=== PATIENT | female | born 2000 | race Two or more races ===

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

== ENCOUNTER 2018-02-14 08:00 | Outpatient (CLI) | payer SELFPAY | END 2018-02-14 23:59 | disposition home or self-care (01) | LOC: LAB.R 08:00 | PROVIDERS: ATTEND Nurse Practitioner Obstetrics & Gynecology | DX: Z11.3 Encounter for screening for infections with a predominantly sexual mode of transmission (principal) | CPT/HCPCS: 87491; 87591 ==

== ENCOUNTER 2018-02-16 09:55 | Outpatient (CLI) | payer SELFPAY ==
[2018-02-17 12:51] LABS: HEPATITIS C ANTIBODY NON-REACTIVE (NON-REACTIVE)
[2018-02-17 13:26] LABS: HIV AG/AB 4TH GEN NON-REACTIVE (NON-REACTIVE)
[2018-02-20 12:41] LABS: HSV 2 IGG TYPE SPECIFIC AB <0.90 index
== END 2018-02-16 23:59 | disposition home or self-care (01) ==
LOC: LAB.N 09:55
PROVIDERS: ATTEND Nurse Practitioner Obstetrics & Gynecology
DX: Z11.3 Encounter for screening for infections with a predominantly sexual mode of transmission (principal)
CPT/HCPCS: 36415; 81599; 86695; 86696; 86803; 87389

== ENCOUNTER 2018-07-25 12:27 | Emergency (ER) | payer SELFPAY ==
--- NOTE | 2018-07-25 12:36 | ED Physician Documentation ---
History of Present Illness - Stated complaint Stated Complaint: RT SIDE BACK PX - Chief complaint Chief Complaint: Abd Pain - History obtained from History obtained from: Patient - Additonal information Additional information: Patient is a previously healthy 17-year-old female presenting with about 2 weeks of right-sided thoracic discomfort that radiates towards her chest and is associated with pleuritic chest pain. Pain is worse with movement. Patient otherwise denies shortness of breath, productive cough, fever, abdominal pain, vomiting, urinary changes, stool changes, vaginal bleeding or pain. Patient denies any recent travel, strenuous exercise, heavy lifting, or known injury. Patient does take control pills. No other improving or worsening factors noted. Review of Systems Constitutional: denies: Fever Cardiac: reports: Chest pain / pressure Respiratory: denies: Dyspnea, Cough GI: denies: Abdominal Pain, Nausea, Vomiting : denies: Dysuria Musculoskeletal: reports: Back pain PD PAST MEDICAL HISTORY - Past Medical History Past Medical History: No - Past Surgical History Past Surgical History: No - Allergies Allergies/Adverse Reactions: Allergies Allergy/AdvReac Type Severity Reaction Status Date / Time No Known Drug Allergies Allergy Verified 10/05/17 21:31 - Social History Does the pt smoke?: No Smoking Status: Never smoker Does the pt drink ETOH?: No Does the pt have substance abuse?: Yes - Immunizations Immunizations are current?: Yes - POLST Patient has POLST: No PD ED PE NORMAL - Vitals Vital signs reviewed: Yes - General General: Alert and oriented X 3, No acute distress, Well developed/nourished - HEENT HEENT: Atraumatic, Moist mucous membranes - Neck Neck: No bony TTP - Cardiac Cardiac: RRR, No murmur - Respiratory Respiratory: No respiratory distress, Clear bilaterally - Abdomen Abdomen: Normal bowel sounds, Soft, Non tender, Non distended - Back Back: No spinal TTP, Other (No tenderness to right-sided cervical, thoracic, and lumbar paraspinal areas.) - Derm Derm: Normal color, Warm and dry, No rash - Extremities Extremities: No deformity, No tenderness to palpate, No edema, No calf tenderness / cord - Neuro Neuro: Alert and oriented X 3, No motor deficit, No sensory deficit - Psych Psych: Normal mood, Normal affect Results - Vitals Vitals: Vital Signs - 24 hr 07/25/18 12:30 Temperature 36.6 C Heart Rate 66 Respiratory 16 Rate Blood Pressure 130/71 O2 Saturation 100 Oxygen O2 Source Room air - Labs Labs: Laboratory Tests 07/25/18 07/25/18 07/25/18 12:45 12:54 12:55 WBC 6.8 RBC 4.72 Hgb 9.5 L Hct 33.7 L MCV 71.4 L MCH 20.1 L MCHC 28.2 L RDW 17.2 H Plt Count 364 MPV 9.8 Neut # (Auto) 4.0 Lymph # (Auto) 2.0 [place] # (Auto) 0.6 Eos # (Auto) 0.2 Baso # (Auto) 0.1 Absolute Nucleated RBC 0.00 Nucleated RBC % 0.0 Manual Slide Review Indicated D-Dimer Sodium Potassium Chloride Carbon Dioxide Anion Gap BUN Creatinine Estimated GFR (MDRD) Glucose Calcium Total Bilirubin AST ALT Alkaline Phosphatase Total Protein Albumin Globulin Albumin/Globulin Ratio Lipase Urine Color YELLOW Urine Clarity CLEAR Urine pH 7.0 Ur Specific [place] 1.015 1.015 Urine Protein NEGATIVE Urine Glucose (UA) NEGATIVE Urine Ketones NEGATIVE Urine Occult Blood NEGATIVE Urine Nitrite NEGATIVE Urine Bilirubin NEGATIVE Urine Urobilinogen 0.2 (NORMAL) Ur Leukocyte Esterase NEGATIVE Ur Microscopic Review NOT INDICATED Urine Culture Comments NOT INDICATED Urine HCG, Qual NEGATIVE 07/25/18 07/25/18 12:55 12:55 WBC RBC Hgb Hct MCV MCH MCHC RDW Plt Count MPV Neut # (Auto) Lymph # (Auto) [place] # (Auto) Eos # (Auto) Baso # (Auto) Absolute Nucleated RBC Nucleated RBC % Manual Slide Review D-Dimer < 200.0 L Sodium 140 Potassium 4.0 Chloride 105 Carbon Dioxide 25 Anion Gap 10.0 BUN 13 Creatinine 0.7 Estimated GFR (MDRD) 108 Glucose 88 Calcium 9.4 Total Bilirubin 0.6 AST 27 ALT 17 Alkaline Phosphatase 60 Total Protein 8.4 H Albumin 4.4 Globulin 4.0 Albumin/Globulin Ratio 1.1 Lipase 37 Urine Color Urine Clarity Urine pH Ur Specific [place] Urine Protein Urine Glucose (UA) Urine Ketones Urine Occult Blood Urine Nitrite Urine Bilirubin Urine Urobilinogen Ur Leukocyte Esterase Ur Microscopic Review Urine Culture Comments Urine HCG, Qual PD MEDICAL DECISION MAKING - ED course Complexity details: reviewed results, re-evaluated patient, considered differential, d/w patient ED course: Feel the patient is likely experiencing musculoskeletal injury or strain, but also consider PE, particularly given patient's description of pleuritic chest pain. Obtained d-dimer, which returned negative. Therefore, do not feel patient requires further evaluation for this issue. Also do not feel the patient is at high risk for pneumonia, ACS, myocardial infarction, unstable angina, aneurysm, dissection, but considered. Do not feel patient requires further work-up cardiac work-up at this time. Screening lab work and urinalysis did not reveal , infection, acute kidney injury, or other significant abnormalities except for slightly low H&H. Did discuss this result with patient and recommended starting iron and multivitamins, as well as repeat lab work and primary care follow-up. Also discussed other supportive cares for her likely musculoskeletal injury, strict return precautions, and again follow-up. Patient voiced understanding and is comfortable with discharge plan. Departure - Departure Disposition: 01 Home, Self Care Clinical Impression: Muscle strain Anemia Qualifiers: Anemia type: unspecified type Qualified Code(s): D64.9 - Anemia, unspecified Condition: Good Instructions: ED Sprain Thoracic Spine, ED Anemia Type Not Specified Follow-Up: Lizbeth Kennedy ARNP [Primary Care Provider] - Within 3 Days Comments: May use ibuprofen/Tylenol, heat, stretching, massage to address her likely muscle discomfort. Do believe this will go away with time. Avoid strenuous exercise, heavy lifting, or other activities that worsen your pain until it resolves. Please follow-up with primary care physician next 2 to 3 days.Also recommend starting iron supplement or multivitamin to address anemia.Also advise repeat lab work and follow-up with your primary care physician for this issue.Return to ED sooner if experience worsening symptoms or other concerns.
[2018-07-25 12:39] VITALS: BP 130/71
[2018-07-25 13:17] LABS: ALBUMIN 4.4 g/dL (3.2-5.5); ALBUMIN/GLOBULIN RATIO 1.1 (1.0-2.2); BILIRUBIN,TOTAL 0.6 mg/dL (0.2-1.0); CALCIUM 9.4 mg/dL (8.5-10.3); CREATININE 0.7 mg/dL (0.4-1.0); TOTAL PROTEIN 8.4 g/dL (6.7-8.2)
[2018-07-25 13:22] LABS: BASOPHILS # (AUTO) 0.1 10^3/uL (0.0-0.1); BASOPHILS % (AUTO) 0.7 %; EOSINOPHILS # (AUTO) 0.2 10^3/uL (0.0-0.7); EOSINOPHILS % (AUTO) 2.5 %; HGB - HEMOGLOBIN 9.5 g/dL (12.0-16.0); LYMPHOCYTES % (AUTO) 29.8 %; MEAN CORPUSCULAR HEMOGLOBIN 20.1 pg (27.0-31.0); MEAN CORPUSCULAR HGB CONC 28.2 g/dL (32.0-36.0); MEAN CORPUSCULAR VOLUME 71.4 fL (81.0-99.0); MEAN PLATELET VOLUME 9.8 fL (7.9-10.8); MONOCYTES # (AUTO) 0.6 10^3/uL (0.0-1.0); MONOCYTES % (AUTO) 8.2 %; NEUTROPHILS % (AUTO) 58.5 %; PLT - PLATELET COUNT 364 10^3/uL (130-450); RED BLOOD COUNT 4.72 10^6/uL (4.20-5.40); RED CELL DISTRIBUTION WIDTH 17.2 % (12.0-15.0); WHITE BLOOD COUNT 6.8 x10^3/uL (4.8-10.8)
[2018-07-25 13:27] LABS: BILIRUBIN,URINE NEGATIVE (NEGATIVE); GLUCOSE, URINE (UA) NEGATIVE (NEGATIVE); KETONES,URINE (UA) NEGATIVE (NEGATIVE); LEUKOCYTE ESTERASE, URINE NEGATIVE (NEGATIVE); NITRITE,URINE NEGATIVE (NEGATIVE); OCCULT BLOOD,URINE NEGATIVE (NEGATIVE); PROTEIN,URINE NEGATIVE (NEGATIVE); UROBILINOGEN,URINE 0.2 (NORMAL) E.U./dL (NORMAL)
[2018-07-25 13:30] LABS: CLARITY,URINE CLEAR (CLEAR)
[2018-07-25 13:31] LABS: HCG UR QUAL NEGATIVE
== END 2018-07-25 14:11 | disposition home or self-care (01) ==
LOC: ED 12:27
DX: S29.011A Strain of muscle and tendon of front wall of thorax, initial encounter (principal); X58.XXXA Exposure to other specified factors, initial encounter; D64.9 Anemia, unspecified
CPT/HCPCS: 36415; 80053; 81001; 81003; 81025; 83690; 85025; 85379; 87086; 99282; 99283

== ENCOUNTER 2018-11-05 08:00 | Outpatient (CLI) | payer SELFPAY ==
[2018-11-05 21:17] LABS: TRICHOMONAS VAGINALIS DNA NEGATIVE (NEGATIVE)
== END 2018-11-05 23:59 | disposition home or self-care (01) ==
LOC: LAB.R 08:00
PROVIDERS: ATTEND Physician Assistant Medical
DX: N93.9 Abnormal uterine and vaginal bleeding, unspecified (principal)
CPT/HCPCS: 87491; 87591; 87661

== ENCOUNTER 2018-11-05 21:48 | Outpatient (CLI) | payer SELFPAY ==
--- NOTE | 2018-11-05 23:59 | Ultrasound Report ---
Reason: VAGINAL BLEEDING Procedure Date: 11/05/2018 Accession Number: [id number] / [id number] Procedure: US - Pelvic w/Transvaginal CPT Code: FULL RESULT: EXAM: PELVIC ULTRASOUND EXAM DATE: 11/05/2018 11:09 PM. CLINICAL HISTORY: VAGINAL BLEEDING. COMPARISON: None. TECHNIQUE: Realtime transabdominal pelvic scan performed to identify the uterus and adnexa and as an overview of other pelvic structures, followed by transvaginal scan to provide greater detail of the uterus and adnexa, with static image documentation. FINDINGS: Uterus: 6.8 x 3.4 x 3 cm, volume 36.2 cc. Anteverted position. Normal overall size and echotexture. Masses: None. Endometrium: 3.2 mm. Endometrium appears normal on the grayscale ultrasound but demonstrates hypervascularity on the color Doppler images. Cervix: Unremarkable. Right Ovary: 2.8 x 3.6 x 1.8 cm, volume 9.4 cc. Normal echotexture and blood flow. Left Ovary: 3.6 x 2.7 x 2.5 cm, volume 12.7 cc. Normal echotexture and blood flow. Free Fluid: None. Other: None. IMPRESSION: 1. Normal appearance of the endometrium on the grayscale images with hypervascularity on the Doppler images. Endometritis is not excluded. 2. No other acute findings. Ovaries unremarkable. [facility] The call report notification system was initiated by Dr. Harshil Pham at 11:35 PM on 11/05/2018. The above call report findings were discussed with Dr. Juarez by Dr. Harshil Pham at 11:57 PM on 11/05/2018.
== END 2018-11-05 21:49 | disposition home or self-care (01) ==
LOC: DI 21:48
PROVIDERS: ATTEND Physician Assistant Medical
DX: N93.9 Abnormal uterine and vaginal bleeding, unspecified (principal)
CPT/HCPCS: 76830; 76856

== ENCOUNTER 2018-11-30 10:46 | Emergency (ER) | payer OTHER ==
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
[2018-11-30] MEDS ORDERED: SULFAMETH/TRIMETH DS 800/160 MG TABLET PO STA (11:58)
[2018-11-30] MEDS ORDERED: cephALEXin 250 MG CAPSULE PO STA (11:58)
[2018-11-30 12:05] VITALS: BP 127/87
== END 2018-11-30 12:19 | disposition home or self-care (01) ==
LOC: ED 10:46
DX: T24.212A Burn of second degree of left thigh, initial encounter (principal); T24.211A Burn of second degree of right thigh, initial encounter; T21.17XA Burn of first degree of female genital region, initial encounter; X10.0XXA Contact with hot drinks, initial encounter; Y92.511 Restaurant or cafe as the place of occurrence of the external cause
CPT/HCPCS: 99282; 99283

== ENCOUNTER 2019-03-19 09:38 | Outpatient (CLI) | payer MEDICAID, OTHER ==
[2019-03-19 21:58] LABS: TRICHOMONAS VAGINALIS DNA NEGATIVE (NEGATIVE)
[2019-03-20 11:33] LABS: HIV AG/AB 4TH GEN NON-REACTIVE (NON-REACTIVE)
== END 2019-03-19 23:59 | disposition home or self-care (01) ==
LOC: LAB.N 09:38
PROVIDERS: ATTEND Nurse Practitioner Gerontology
DX: Z11.3 Encounter for screening for infections with a predominantly sexual mode of transmission (principal)
CPT/HCPCS: 36415; 81599; 86592; 87389; 87491; 87591; 87661

== ENCOUNTER 2020-01-13 13:23 | Outpatient (CLI) | payer OTHER, MEDICAID ==
--- NOTE | 2020-01-13 15:05 | XRAY Report ---
PROCEDURE: Ankle 2 View LT INDICATIONS: L ANKLE PX TECHNIQUE: 2 views of the ankle were acquired. COMPARISON: None FINDINGS: Bones: No fractures or dislocations. Ankle mortise is normally aligned. No suspicious bony lesions . Soft tissues: Ankle edema is present. Achilles tendon appears normal. IMPRESSION: No visualized acute fracture or dislocation. However, occult injury cannot be excluded. Recommend short interval imaging follow-up in 7-10 days as clinically indicated for additional evalua tion. Reviewed by: Clarissa Kaur MD on 01/13/2020 3:04 PM PST Approved by: Clarissa Kaur MD on 01/13/2020 3:04 PM [facility] Station ID: [id number]
== END 2020-01-13 23:59 | disposition home or self-care (01) ==
LOC: DI.N 13:23
PROVIDERS: ATTEND Family Medicine
DX: M25.572 Pain in left ankle and joints of left foot (principal)

== ENCOUNTER 2021-06-05 10:58 | Emergency (ER) | payer MEDICAID ==
[2021-06-05 11:13] LABS: BILIRUBIN,URINE NEGATIVE (NEGATIVE); GLUCOSE, URINE (UA) NEGATIVE (NEGATIVE); KETONES,URINE (UA) NEGATIVE (NEGATIVE); LEUKOCYTE ESTERASE, URINE NEGATIVE (NEGATIVE); NITRITE,URINE NEGATIVE (NEGATIVE); OCCULT BLOOD,URINE NEGATIVE (NEGATIVE); PH,URINE 5.5 PH (5.0-7.5); PROTEIN,URINE NEGATIVE (NEGATIVE); UROBILINOGEN,URINE 0.2 (NORMAL) E.U./dL (NORMAL)
[2021-06-05 11:17] LABS: CLARITY,URINE CLEAR (CLEAR); HCG UR QUAL NEGATIVE
[2021-06-05 11:23] LABS: BASOPHILS # (AUTO) 0.1 10^3/uL (0.0-0.1); BASOPHILS % (AUTO) 1.1 %; EOSINOPHILS # (AUTO) 0.3 10^3/uL (0.0-0.7); EOSINOPHILS % (AUTO) 3.4 %; HCT - HEMATOCRIT 38.4 % (37.0-47.0); HGB - HEMOGLOBIN 12.3 g/dL (12.0-16.0); LYMPHOCYTES # (AUTO) 2.2 10^3/uL (1.5-3.5); LYMPHOCYTES % (AUTO) 28.9 %; MEAN CORPUSCULAR HEMOGLOBIN 26.8 pg (27.0-31.0); MEAN CORPUSCULAR VOLUME 83.7 fL (81.0-99.0); MONOCYTES % (AUTO) 12.8 %; NEUTROPHILS % (AUTO) 53.5 %; PLT - PLATELET COUNT 284 10^3/uL (130-450); RED BLOOD COUNT 4.59 10^6/uL (4.20-5.40); RED CELL DISTRIBUTION WIDTH 14.3 % (12.0-15.0); WHITE BLOOD COUNT 7.4 x10^3/uL (4.8-10.8)
--- OUTSIDE RECORDS SUMMARY | 2021-06-05 11:28 | EXTERNAL MEDICAL SUMMARY RPT | Continuity of Care Document ---
:2000 Author Organization [place] Address [address] [place] [address] Phone Care Team Providers Name Role Phone Crew, Lizbeth Lindquist Unavailable Unavailable Allergies No information. Encounters No information. Medications No information. Problems Procedures date description facility [id number] [facility] Results No information. Vital Signs date measurement value source 20210529 weight_standard 131 lb 20210529 weight_metric 59.42 kg 20210529 temperature_standard 97.7 F 20210529 temperature_metric 36.5 C 20210529 respiration_rate 19 /min 20210529 height_standard 62 in 20210529 height_metric 157.48 cm 20210529 heart_rate 78 /min 20210529 BP_systolic 130 mm[Hg] 20210529 BP_diastolic 63 mm[Hg] 20210529 BMI 23.9 kg/m2
[2021-06-05 11:40] LABS: ALBUMIN 4.6 g/dL (3.2-5.5); ALBUMIN/GLOBULIN RATIO 1.5 (1.0-2.2); BILIRUBIN,TOTAL 0.4 mg/dL (0.2-1.0); CALCIUM 9.3 mg/dL (8.5-10.3); CREATININE 0.6 mg/dL (0.4-1.0); POTASSIUM 3.5 mmol/L (3.5-5.0); TOTAL PROTEIN 7.6 g/dL (6.7-8.2)
--- NOTE | 2021-06-05 11:53 | ED Physician Documentation ---
PD HPI ABD PAIN - Stated complaint Stated Complaint: ABD PX - Chief complaint Chief Complaint: Abd Pain - History obtained from History obtained from: Patient - History of Present Illness Timing - onset: How many weeks ago (3) Timing - duration: Weeks (3) Timing - details: Gradual onset, Still present, Waxing and waning Quality: Cramping, Sharp, Pain Location: RLQ Radiation: Lower back Improved by: Laying still Worsened by: Position, Palpation Associated symptoms: No: Nausea, Vomiting, Diarrhea, Constipation Similar symptoms before: Diagnosis (ovarian cyst) Recently seen: Emergency Dept - Additional information Additional information: 20 y/o female reports a 3wk history of intermittent RLQ pain. Seen at [place] ED with dx of L ovarian cyst and the pain has persisted. She reports a burning sensation in the RLQ and intermittent cramping pain. She reports normal BM's Review of Systems Constitutional: denies: Fever Nose: denies: Congestion Throat: denies: Sore throat Cardiac: denies: Chest pain / pressure Respiratory: denies: Cough GI: reports: Abdominal Pain. denies: Nausea, Vomiting, Constipation, Diarrhea : denies: Dysuria, Frequency, Discharge Skin: denies: Rash Musculoskeletal: denies: Neck pain, Back pain, Extremity pain PD PAST MEDICAL HISTORY - Past Surgical History Past Surgical History: No - Present Medications Home Medications: Ambulatory Orders Medication Instructions Recorded Confirmed No Known Home Medications 06/05/21 06/05/21 - Allergies Allergies/Adverse Reactions: Allergies Allergy/AdvReac Type Severity Reaction Status Date / Time No Known Drug Allergies Allergy Verified 06/05/21 11:02 - Social History Does the pt smoke?: No Smoking Status: Never smoker Does the pt drink ETOH?: Yes Does the pt have substance abuse?: No - Immunizations Immunizations are current?: Yes - POLST Patient has POLST: No PD ED PE NORMAL - Vitals Vital signs reviewed: Yes (normal ) - General General: Alert and oriented X 3, No acute distress, Well developed/nourished - HEENT HEENT: Atraumatic, PERRL, EOMI - Neck Neck: Supple, no meningeal sign, No bony TTP - Cardiac Cardiac: RRR, No murmur - Respiratory Respiratory: No respiratory distress, Clear bilaterally - Abdomen Abdomen: Normal bowel sounds, Soft, Non distended, No organomegaly, Other (mild tenderness to deep palpation of the RLQ. Not reproducible. ) - Back Back: No CVA TTP, No spinal TTP - Derm Derm: Normal color, Warm and dry, No rash - Extremities Extremities: No deformity, No edema - Neuro Neuro: Alert and oriented X 3, well drill operator 2-12 intact, No motor deficit, No sensory deficit, Normal speech Eye Opening: Spontaneous Motor: Obeys Commands Verbal: Oriented GCS Score: 15 - Psych Psych: Normal mood, Normal affect Results - Vitals Vitals: Vital Signs - 24 hr 06/05/21 06/05/21 11:00 12:51 Temperature 37.4 C 36.5 C Heart Rate 92 69 Respiratory 16 16 Rate Blood Pressure 124/65 111/69 O2 Saturation 98 96 Oxygen O2 Source Room air - Labs Labs: Laboratory Tests 06/05/21 06/05/21 06/05/21 11:05 11:15 11:15 WBC 7.4 RBC 4.59 Hgb 12.3 Hct 38.4 MCV 83.7 MCH 26.8 L MCHC 32.0 RDW 14.3 Plt Count 284 MPV 10.0 Neut # (Auto) 4.0 Lymph # (Auto) 2.2 Brooks # (Auto) 1.0 Eos # (Auto) 0.3 Baso # (Auto) 0.1 Absolute Nucleated RBC 0.00 Nucleated RBC % 0.0 Sodium 136 Potassium 3.5 Chloride 104 Carbon Dioxide 21 Anion Gap 11.0 BUN 15 Creatinine 0.6 Estimated GFR (MDRD) 125 Glucose 91 Calcium 9.3 Total Bilirubin 0.4 AST 21 ALT 12 Alkaline Phosphatase 61 Total Protein 7.6 Albumin 4.6 Globulin 3.0 Albumin/Globulin Ratio 1.5 Lipase 38 Urine Color YELLOW Urine Clarity CLEAR Urine pH 5.5 Ur Specific [place] >=1.030 H Urine Protein NEGATIVE Urine Glucose (UA) NEGATIVE Urine Ketones NEGATIVE Urine Occult Blood NEGATIVE Urine Nitrite NEGATIVE Urine Bilirubin NEGATIVE Urine Urobilinogen 0.2 (NORMAL) Ur Leukocyte Esterase NEGATIVE Ur Microscopic Review NOT INDICATED Urine Culture Comments NOT INDICATED Urine HCG, Qual NEGATIVE - Rads (name of study) CT ab pel with Radiology: Prelim report reviewed (Impression: Appendix is normal. Prominent colonic stool consistent with constipation. No obstruction. Left ovarian cyst.), EMP read indepedently, See rad report PD MEDICAL DECISION MAKING - ED course Complexity details: reviewed results, re-evaluated patient, considered differential, d/w patient ED course: 20 y/o female with intermittent RLQ abdominal pain and a prior ED visit with dx of ovarian cyst reports to the ED with ongoing symptoms that are not constant. She reports sometimes having pain every 20 minutes. She reports normal daily BM's and her CT scan shows a high colonic stool burden. By history this is the most likely explanation for her intermittent pain and she is counseled on use of MOM and mirilax. Departure - Departure Disposition: Home, Self Care Clinical Impression: Constipation Qualifiers: Constipation type: unspecified constipation type Qualified Code(s): K59.00 - Constipation, unspecified Condition: Stable Instructions: ED Constipation Follow-Up: Lori Murrell ARNP [Provider Admit Priv/Credential] - Comments: Elizabeth, today it looks like the cause of your intermittent pain is constipation. Despite having normal bowel movements does look like there is about 5 days worth of stool in your colon. The recommendation is to go home and take some milk of magnesia and expect results within 6 hours if you do not have results take a second dose. In order to retrain your colon it is recommended to take MiraLAX (available over the counter) on a regular basis for at least 2 weeks. Discharge Date/Time: 06/05/21 12:53
[2021-06-05] MEDS ORDERED: IOPAMIDOL-300 100 ML VIAL ONE (12:08)
[2021-06-05] MEDS ORDERED: IOPAMIDOL-300 100 ML VIAL IVP ONE (12:20)
--- NOTE | 2021-06-05 12:28 | CT Report ---
PROCEDURE: Abdomen/Pelvis W INDICATIONS: RLQ pain CONTRAST: IV CONTRAST: Isovue 300 ml: 100 PO CONTRAST: *NO PO CONTRAST TECHNIQUE: After the administration of oral contrast, 5 mm thick sections acquired from the diaphragms to the sy mphysis. 5 mm thick coronal and sagittal reformats were acquired. For radiation dose reduction, the following was used: automated exposure control, adjustment of mA and/or kV according to patient siz e. COMPARISON: CT abdomen pelvis 01/04/2017 FINDINGS: Image quality: Excellent. ABDOMEN: Lung bases: Lung bases are clear. Heart size is normal. Solid organs: Liver and spleen are normal in size and enhancement. Gallbladder is unremarkable Chidi iary system is non dilated. Pancreas enhances normally. No adrenal nodules. Kidneys demonstrate no rmal size and enhancement, without hydronephrosis. Peritoneum and bowel: Bowel loops demonstrate normal wall thickness and caliber. No free fluid or a ir. Prominent colonic stool is present. Partially visualized appendix is normal. No right lower quad rant inflammatory change. Nodes and vessels: No retroperitoneal or mesenteric adenopathy by size criteria. Aorta and inferior vena cava are normal in size. Miscellaneous: No ventral hernias. PELVIS: Genitourinary: Bladder wall thickness is normal. Partially visualized low-attenuation left adnexal focus is present measuring 2.6 cm. Miscellaneous: No inguinal hernias or adenopathy. Bones: No suspicious bony lesions. No vertebral body compression fractures. IMPRESSION: Appendix is normal. Prominent colonic stool consistent with constipation. No obstruction. Left ovarian cyst. Reviewed by: Clarissa Kaur MD on 06/05/2021 12:27 PM PDT Approved by: Clarissa Kaur MD on 06/05/2021 12:27 PM PDT Station ID: [id number]
[2021-06-05 12:53] VITALS: BP 111/69
== END 2021-06-05 12:53 | disposition home or self-care (01) ==
LOC: ED 10:58
DX: K59.00 Constipation, unspecified (principal)
CPT/HCPCS: 36415; 74177; 80053; 81003; 81025; 83690; 85025; 99282; 99284; Q9967; 81001; 87086

== ENCOUNTER 2022-08-31 12:51 | Outpatient (CLI) | payer MEDICAID ==
--- NOTE | 2022-08-31 18:26 | Ultrasound Report ---
PROCEDURE: OB First Trimester w/TV INDICATIONS: UNWANTED OUTSIDE/PRIOR DATING DATA: Last menstrual period (LMP): 07/22/2022. LMP-based estimated date of delivery (KAUR): 04/28/2023. First dating scan (date and location): 08/31/2022. Estimated date of delivery (KAUR) from first dating scan: Not calculated. TECHNIQUE: Real-time scanning was performed of the fetus and maternal pelvic organs, with image documentation. Endovaginal scanning was also performed to better visualize the fetus and maternal ovaries. COMPARISON: None. FINDINGS: There is an intrauterine gestational sac. It measures 0.86 cm, 5 weeks 5 days. A crown-rum p length is not identified. No heartbeat is identified. Measurement variability in dating: +/- 4 weeks by LMP, +/- 7 days by mean sac diameter (use before 6 weeks gestation if crown-rump length not able to be measured), +/- 5 days by crown-rump length (6-12 weeks gestation). Maternal organs: Left corpus luteum measuring 2.1 cm in maximum diameter. IMPRESSION: Very early intrauterine with gestational sac measuring 5 weeks 5 days. There is no po le or heartbeat identified, at this very early time in . Reviewed by: Partha Espino MD on 08/31/2022 6:25 PM PDT Approved by: Partha Espino MD on 08/31/2022 6:25 PM PDT Station ID: [id number]
== END 2022-08-31 12:52 | disposition home or self-care (01) ==
LOC: DI 12:51
PROVIDERS: ATTEND Nurse Practitioner
DX: Z33.2 Encounter for elective termination of pregnancy (principal); Z64.0 Problems related to unwanted pregnancy
CPT/HCPCS: 36415; 84702

== ENCOUNTER 2022-08-31 12:54 | Outpatient (CLI) | payer MEDICAID | END 2022-08-31 12:55 | disposition home or self-care (01) | LOC: LAB 12:54 | PROVIDERS: ATTEND Nurse Practitioner | DX: Z32.01 Encounter for pregnancy test, result positive (principal); Z64.0 Problems related to unwanted pregnancy | CPT/HCPCS: 36415; 84702 ==

== ENCOUNTER 2022-09-02 15:59 | Outpatient (CLI) | payer MEDICAID ==
[2022-09-03 10:32] LABS: CHLAMYDIA TRACHOMATIS DNA NEGATIVE (NEGATIVE); NEISSERIA GONORRHOEAE DNA NEGATIVE (NEGATIVE)
== END 2022-09-02 16:00 | disposition home or self-care (01) ==
LOC: LAB.N 15:59
PROVIDERS: ATTEND Nurse Practitioner
DX: Z64.0 Problems related to unwanted pregnancy (principal); Z32.01 Encounter for pregnancy test, result positive
CPT/HCPCS: 86850; 86900; 86901; 87491; 87591; 87661

== ENCOUNTER 2022-09-12 15:02 | Outpatient (CLI) | payer MEDICAID ==
[2022-09-12 18:03] LABS: HCT - HEMATOCRIT 36.1 % (37.0-47.0); HGB - HEMOGLOBIN 11.2 g/dL (12.0-16.0); MEAN CORPUSCULAR HEMOGLOBIN 26.6 pg (27.0-31.0); MEAN CORPUSCULAR VOLUME 85.7 fL (81.0-99.0); MEAN PLATELET VOLUME 10.8 fL (7.9-10.8); RED BLOOD COUNT 4.21 10^6/uL (4.20-5.40); RED CELL DISTRIBUTION WIDTH 13.7 % (12.0-15.0); WHITE BLOOD COUNT 5.4 x10^3/uL (4.8-10.8)
[2022-09-12 18:44] LABS: THYROID STIMULATING HORMONE 0.61 uIU/mL (0.34-5.60)
[2022-09-12 18:50] LABS: FERRITIN 2.9 ng/mL (11.0-306.8)
== END 2022-09-12 15:03 | disposition home or self-care (01) ==
LOC: LAB.N 15:02
PROVIDERS: ATTEND Nurse Practitioner
DX: D62 Acute posthemorrhagic anemia (principal); I49.9 Cardiac arrhythmia, unspecified
CPT/HCPCS: 36415; 82728; 84443; 85027

== ENCOUNTER 2022-11-20 19:28 | Emergency (ER) | payer MEDICAID ==
[2022-11-20 19:50] VITALS: BP 133/81; O2SAT 100
[2022-11-20] MEDS ORDERED: IBUPROFEN 600 MG TABLET PO STA (20:13)
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
[2022-11-20] MEDS ORDERED: BACITRACIN ZINC OINT 1 PACKET TOP STA (20:15)
--- NOTE | 2022-11-20 20:17 | XRAY Report ---
PROCEDURE: Hand 3 View RT INDICATIONS: fell injured R fingers, c/o pain TECHNIQUE: 3 views of the hand(s) acquired. COMPARISON: None. FINDINGS: Bones: No fractures or dislocations. No suspicious bony lesions. Soft tissues: No suspicious soft tissue calcifications. IMPRESSION: No acute bony abnormality. If pain persists with conservative management, consider repeat radiographs in 10-14 days or cross-sectional imaging. Reviewed by: Freddy Rai MD on 11/20/2022 8:15 PM PDT Approved by: Freddy Rai MD on 11/20/2022 8:15 PM PDT Station ID: [id number]
--- OUTSIDE RECORDS SUMMARY | 2022-11-20 20:29 | EXTERNAL MEDICAL SUMMARY RPT | Continuity of Care Document ---
Author Name Unknown Address [address] [place] [address] Phone Organization [facility] Address [address] [place] [address] Phone Care Team Providers Care Stepdown Nurse Name Role Phone Edis Donald Unavailable Unavailable Problems date description facility 2022-08-26 00:00 Abdominal cramps [facility] Procedures date description facility 2022-08-26 00:00 Transvaginal obstetrical ultras [facility] Results/Labs test date facility value unit notes Social History date description facility 2022-08-26 00:00 Current some day [facility] Vital Signs date measurement value units 2022-08-26 00:00 BMI 26.4 kg/m2 2022-08-26 00:00 BP_diastolic 73 mmHg 2022-08-26 00:00 BP_systolic 126 mmHg 2022-08-26 00:00 heart_rate 79 /min 2022-08-26 00:00 height_metric 154.94 cm 2022-08-26 00:00 height_standard 61 in 2022-08-26 00:00 o2_saturation 99 % 2022-08-26 00:00 respiration_rate 18 /min 2022-08-26 00:00 temperature_metric 36.61 C 2022-08-26 00:00 temperature_standard 97.9 F 2022-08-26 00:00 weight_metric 63.5 kg 2022-08-26 00:00 weight_standard 139.99 lb
== END 2022-11-20 20:42 | disposition home or self-care (01) ==
LOC: ED 19:28
DX: S60.221A Contusion of right hand, initial encounter (principal); W01.0XXA Fall on same level from slipping, tripping and stumbling without subsequent striking against object, initial encounter; Y93.01 Activity, walking, marching and hiking
CPT/HCPCS: 73130; 99283; A9270

== ENCOUNTER 2023-01-02 22:13 | Emergency (ER) | payer MEDICAID ==
[2023-01-02 22:26] VITALS: O2SAT 100
[2023-01-02] MEDS ORDERED: AMOX/CLAV 875 MG/125 MG TABLET PO STA (23:22)
[2023-01-02 23:37] VITALS: BP 122/62
--- NOTE | 2023-01-04 07:04 | ED Physician Documentation ---
History of Present Illness - Stated complaint Stated Complaint: THROAT PX - Chief complaint Chief Complaint: General - History obtained from History obtained from: Patient - Additonal information Additional information: HPI from patient. Patient complains of painful and tender lump on the left side of her neck just below the jawline. Denies history of similar symptoms, denies injury/trauma. She first noticed this approximately 4 days ago and it has steadily enlarged in size and increased in pain intensity. Over the course of the day today she has noticed the pain has slowly radiated to involve the left side of her face towards her left ear. She denies fever, sore throat. The pain radiates towards the left ear, she denies ear pain per se. Review of Systems Constitutional: denies: Fever, Chills, Sweats Ears: denies: Ear pain Throat: denies: Sore throat Endocrine: reports: Swollen lymph nodes PD PAST MEDICAL HISTORY - Past Medical History Past Medical History: No - Past Surgical History Past Surgical History: No - Present Medications Home Medications: Ambulatory Orders Medication Instructions Recorded Confirmed Amox/Clav 875/125 [Augmentin 1 tablet PO Q12H 7 Days #14 tablet 01/02/23 875/125 Tab] - Allergies Allergies/Adverse Reactions: Allergies Allergy/AdvReac Type Severity Reaction Status Date / Time No Known Drug Allergies Allergy Verified 01/02/23 22:17 - Social History Does the pt smoke?: No Smoking Status: Never smoker Does the pt drink ETOH?: Yes Does the pt have substance abuse?: No - Immunizations Immunizations are current?: Yes - POLST Patient has POLST: No PD ED PE NORMAL - Vitals Vital signs reviewed: Yes - General General: Alert and oriented X 3, No acute distress, Well developed/nourished - HEENT HEENT: Ears normal, Moist mucous membranes, Pharynx benign - Neck Neck: Supple, no meningeal sign PD ED PE EXPANDED - Neck Neck: Adenopathy (swollen, tender lympadenopathy left anterolateral aspect of neck . no fluctuance, no erythema) Results - Vitals Vitals: Oxygen O2 Source Room air PD Medical Decision Making - ED course Complexity details: considered differential, d/w patient ED course: Patient presents with 4 days of what appears to be isolated left-sided cervical adenopathy. There is no evidence of an infectious source from which this lymph node might be draining (such as pharyngitis or otitis). She is given p.o. A ugmentin in the ED for lymphadenitis, and a prescription is electronically submitted to patient's pharmacy of choice. Return precautions are discussed. She denies having any other swollen lymph nodes. I advised her to follow-up with her primary care provider in 5 to 7 days if the symptoms have not completely resolved. Departure - Departure Disposition: 01 Home, Self Care Clinical Impression: Cervical lymphadenitis Condition: Good Instructions: ED Cervical Adenitis Abx Tx Prescriptions: Amox/Clav 875/125 [Augmentin 875/125 Tab] 1 tablet PO Q12H 7 Days #14 tablet Comments: I suspect the painful/tender and swollen lump on the side of your neck is due to a possibly infected lymph node. This is called lymphadenitis. Instructions regarding this diagnosis are included in this discharge packet. Because bacteria are amongst the possible causes of this diagnosis, you were given the first dose of an antibiotic (Augmentin) in the emergency department, and I have electronically submitted a prescription for 1-week course of this antibiotic to the [facility] pharmacy in [place]. Contact your primary care provider's office in the morning when their office is open to arrange for next available appointment. Ideally, following up in 3 to 5 days would be advantageous; this would give enough time for the antibiotic to at least have started working and thus to assess whether or not you are having improvement in symptoms. There are other potential causes of your symptoms/sign, and testing might be needed if you do not respond appropriately to the antibiotic. Forms: PCP List Discharge Date/Time: 01/02/23 23:35
== END 2023-01-02 23:35 | disposition home or self-care (01) ==
LOC: ED 22:13
DX: I88.8 Other nonspecific lymphadenitis (principal)
CPT/HCPCS: 99282; 99283; A9270

== ENCOUNTER 2023-08-15 06:34 | Emergency (ER) | payer MEDICAID ==
--- NOTE | 2023-08-15 06:57 | ED Physician Documentation ---
PD HPI FEMALE - Stated complaint Stated Complaint: SPOTTING,HIGH HEART RATE - Chief complaint Chief Complaint: Abd Pain - History obtained from History obtained from: Patient - History of Present Illness Timing - onset: Today, Last night Timing - details: Waxing and waning Associated symptoms: Pelvic pain (had some pelvic cramping with small vaginal spotting last night and this morning and also had feeling of irregular heart beating this morning.). 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 More consistent the past few days.). denies: Vomiting, Diarrhea PD PAST MEDICAL HISTORY - Past Medical History Past Medical History: No Cardiovascular: None Respiratory: None Neuro: None Endocrine/Autoimmune: None - Past Surgical History Past Surgical History: No - Present Medications Home Medications: Ambulatory Orders Medication Instructions Recorded Confirmed Amox/Clav 875/125 [Augmentin 1 tablet PO Q12H 7 Days #14 tablet 01/02/23 875/125 Tab] Magnesium Oxide [Mag Ox] 400 mg PO DAILY #20 tablet 08/15/23 Ondansetron Odt [Zofran] 4 mg TL Q6H PRN #20 tablet 08/15/23 Pnv No.95/Ferrous Fum/Folic AC 1 tab PO DAILY 08/15/23 08/15/23 [ Caplet] Pnv No.95/Ferrous Fum/Folic AC 1 each PO DAILY #30 tablet 08/15/23 [ Tablet] Pyridoxine HCl (Vitamin B6) 50 mg PO BID #40 tab 08/15/23 [Vitamin B6] - Allergies Allergies/Adverse Reactions: Allergies Allergy/AdvReac Type Severity Reaction Status Date / Time No Known Drug Allergies Allergy Verified 08/15/23 06:53 - Social History Does the pt smoke?: No Smoking Status: Never smoker Does the pt drink ETOH?: Yes Does the pt have substance abuse?: No - Immunizations Immunizations are current?: Yes - POLST Patient has POLST: No PD ED PE NORMAL - Vitals Vital signs reviewed: Yes - General General: Alert and oriented X 3, No acute distress, Well developed/nourished - Neck Neck: Supple, no meningeal sign, No adenopathy - Cardiac Cardiac: No murmur. No: RRR (mainly regular with occasional extra beat heard. No murmur. ) - Respiratory Respiratory: No respiratory distress, Clear bilaterally - Abdomen Abdomen: Normal bowel sounds, Soft, Non distended, No organomegaly, Other (uterus minimal enlarged palpably as yet. Not above pelvic rim yet. Bedside US showing single IUP likely 7-9 weeks, but I could not get measurements working correctly. ) - Female Female : Deferred - Back Back: No CVA TTP - Derm Derm: Normal color, Warm and dry - Neuro Neuro: Alert and oriented X 3, No motor deficit, Normal speech Results - Vitals Vitals: Vital Signs - 24 hr 08/15/23 08/15/23 08/15/23 06:48 08:50 10:00 Temperature 36.3 C L Heart Rate 66 78 80 Respiratory 18 18 16 Rate Blood Pressure 122/69 118/78 120/78 O2 Saturation 100 100 100 Oxygen O2 Source Room air - EKG (time done) 08:31 EKG releavant findings:: EKG personally interpreted by author of this note. Relevant findings are: Rate: Rate (enter#) (66) Rhythm: NSR, Other (occasional PACs, at time of ECG was trigeminy.) Watson: Normal Intervals: Normal CA Ischemia: ST elevation c/w repol. No: ST elevation c/w ischemia - Labs Labs: Laboratory Tests 08/15/23 08/15/23 08/15/23 06:51 07:35 07:35 WBC 7.3 RBC 4.49 Hgb 11.0 L Hct 35.1 L MCV 78.2 L MCH 24.5 L MCHC 31.3 L RDW 16.7 H Plt Count 274 MPV 10.3 Neut # (Auto) 4.6 Lymph # (Auto) 1.4 L [place] # (Auto) 0.6 Eos # (Auto) 0.5 Baso # (Auto) 0.1 Absolute Nucleated RBC 0.00 Nucleated RBC % 0.0 Sodium 133 L Potassium 3.9 Chloride 105 Carbon Dioxide 22 Anion Gap 6.0 BUN 7 Creatinine 0.5 L Estimated GFR (MDRD) 152 Glucose 88 Calcium 9.2 Magnesium 1.6 L Total Bilirubin 0.3 AST 13 ALT 7 L Alkaline Phosphatase 43 Total Protein 7.3 Albumin 4.1 Globulin 3.2 Albumin/Globulin Ratio 1.3 Lipase 21 TSH 0.50 Urine Color YELLOW Urine Clarity SL. CLOUDY Urine pH 6.0 Ur Specific [place] >=1.030 H Urine Protein NEGATIVE Urine Glucose (UA) NEGATIVE Urine Ketones NEGATIVE Urine Occult Blood NEGATIVE Urine Nitrite NEGATIVE Urine Bilirubin NEGATIVE Urine Urobilinogen 0.2 (NORMAL) Ur Leukocyte Esterase SMALL H Urine RBC 6-10 H Urine WBC 11-25 H Ur Squamous Epith Cells MANY Squamous H Urine Bacteria Moderate H Urine Culture Comments NOT INDICATED Urine HCG, Qual POSITIVE - Rads (name of study) pelvic OB US Relevant Findings:: Prelim report reviewed, Other (US tech: 7w2d single viable IUP with FHR 148. Ovaries normal. No perichorionic fluid. No pelvic free fluid. ) PD Medical Decision Making - ED course Complexity details: reviewed results (bedside US showing IUP estimating about 7- 9 weeks but I was not getting EGA estaimates from measurements. No free fluid. Can get formal US. ), considered differential, d/w patient ED course: discussed with pt the benign (though annoying) palpitations and to hydrate well, add Magnesium. Regarding nausea and , US is good and can treat with Vit B-6, Zofran, and start on vits. Departure - Departure Disposition: 01 Home, Self Care Clinical Impression: Vaginal spotting, , Heart palpitations, PAC (premature atrial contraction), Hypomagnesemia, Nausea Condition: Stable Record reviewed to determine appropriate education?: Yes Follow-Up: Karen Stovall, EMERGENCY VEHICLE TECHNICIAN [Primary Care Provider] - Prescriptions: Magnesium Oxide [Mag Ox] 400 mg PO DAILY #20 tablet Pnv No.95/Ferrous Fum/Folic AC [ Tablet] 1 each PO DAILY #30 tablet Pyridoxine HCl (Vitamin B6) [Vitamin B6] 50 mg PO BID #40 tab Ondansetron Odt [Zofran] 4 mg TL Q6H PRN #20 tablet PRN Reason: Nausea / Vomiting Comments: Your ultrasound appears normal with a live single intrauterine at 7 weeks 2 days gestational age. No other abnormalities on pelvic exam. Some small amount of cramping and spotting bleeding is fairly common in early and can occur in 1 out of 4 or 5 pregnancies. Return if significant increase in pain bleeding etc. Otherwise follow-up with the women's health clinic on the as planned. I wrote prescriptions to start the vitamin as well as a vitamin B6 to help with nausea and ondansetron to help with nausea as well. On your EKG you are having occasional extra atrial beats called PACs. These are relatively common and harmless though can be annoying. Your magnesium was low on blood test and an added magnesium supplement may be helpful with the PACs. I sent your prescriptions to your preferred pharmacy. Stay well-hydrated otherwise. Forms: PCP List Discharge Date/Time: 08/15/23 10:17
[2023-08-15 07:00] VITALS: O2SAT 100
[2023-08-15 07:00] LABS: BILIRUBIN,URINE NEGATIVE (NEGATIVE); GLUCOSE, URINE (UA) NEGATIVE (NEGATIVE); KETONES,URINE (UA) NEGATIVE (NEGATIVE); LEUKOCYTE ESTERASE, URINE SMALL (NEGATIVE); NITRITE,URINE NEGATIVE (NEGATIVE); OCCULT BLOOD,URINE NEGATIVE (NEGATIVE); PROTEIN,URINE NEGATIVE (NEGATIVE); UROBILINOGEN,URINE 0.2 (NORMAL) E.U./dL (NORMAL)
[2023-08-15 07:02] LABS: CLARITY,URINE SL. CLOUDY (CLEAR); HCG UR QUAL POSITIVE
[2023-08-15 07:11] LABS: BACTERIA,URINE Moderate /HPF (None Seen); SQUAMOUS EPITHELIAL CELL,UR MANY Squamous (<= Few)
[2023-08-15 07:51] LABS: BASOPHILS # (AUTO) 0.1 10^3/uL (0.0-0.1); EOSINOPHILS # (AUTO) 0.5 10^3/uL (0.0-0.7); EOSINOPHILS % (AUTO) 7.3 %; HCT - HEMATOCRIT 35.1 % (37.0-47.0); LYMPHOCYTES # (AUTO) 1.4 10^3/uL (1.5-3.5); LYMPHOCYTES % (AUTO) 19.7 %; MEAN CORPUSCULAR HEMOGLOBIN 24.5 pg (27.0-31.0); MEAN CORPUSCULAR HGB CONC 31.3 g/dL (32.0-36.0); MEAN CORPUSCULAR VOLUME 78.2 fL (81.0-99.0); MEAN PLATELET VOLUME 10.3 fL (7.9-10.8); MONOCYTES # (AUTO) 0.6 10^3/uL (0.0-1.0); MONOCYTES % (AUTO) 8.4 %; NEUTROPHILS # (AUTO) 4.6 10^3/uL (1.5-6.6); NEUTROPHILS % (AUTO) 62.8 %; PLT - PLATELET COUNT 274 10^3/uL (130-450); RED BLOOD COUNT 4.49 10^6/uL (4.20-5.40); RED CELL DISTRIBUTION WIDTH 16.7 % (12.0-15.0); WHITE BLOOD COUNT 7.3 x10^3/uL (4.8-10.8)
[2023-08-15 07:58] LABS: ALBUMIN 4.1 g/dL (3.2-5.5); ALBUMIN/GLOBULIN RATIO 1.3 (1.0-2.2); BILIRUBIN,TOTAL 0.3 mg/dL (0.2-1.0); CALCIUM 9.2 mg/dL (8.5-10.3); CREATININE 0.5 mg/dL (0.6-1.3); MAGNESIUM 1.6 mg/dL (1.7-2.3); POTASSIUM 3.9 mmol/L (3.5-4.5); TOTAL PROTEIN 7.3 g/dL (6.4-8.9)
[2023-08-15 08:10] LABS: THYROID STIMULATING HORMONE 0.5 uIU/mL (0.34-5.60)
[2023-08-15] MEDS: ACETAMINOPHEN 325 MG TABLET PO STA (08:21)
[2023-08-15] MEDS: MAGNESIUM OXIDE 400 MG TABLET PO STA (08:22)
[2023-08-15] MEDS: ONDANSETRON ODT 4 MG TABLET TL STA (08:22)
--- NOTE | 2023-08-15 08:59 | Ultrasound Report ---
PROCEDURE: OB 1st Trimester INDICATIONS: early approx 9-10wks, spotting OUTSIDE/PRIOR DATING DATA: Last menstrual period (LMP): Unknown. LMP-based estimated date of delivery (KAUR): Unknown. First dating scan (date and location): 08/15/2023. Estimated date of delivery (KAUR) from first dating scan: 03/31/2024. TECHNIQUE: Real-time scanning was performed of the fetus and maternal pelvic organs, with image documentation. COMPARISON: None. FINDINGS: Intrauterine gestational sac present. Embryo: Nason-rump length measures 1.1 cm, consistent with 7 weeks and 2 days. Heart rate: 148 bpm. Other: No perigestational fluid collection. Normal yolk sac is present. Measurement variability in dating: +/- 4 weeks by LMP, +/- 7 days by mean sac diameter (use before 6 weeks gestation if crown-rump length not able to be measured), +/- 5 days by crown-rump length (6-12 weeks gestation). Maternal organs: Ovaries appear within normal limits. IMPRESSION: Single live intrauterine consistent with 7 weeks and 2 days. Reviewed by: Landen Stacy MD on 08/15/2023 8:58 AM PDT Approved by: Landen Stacy MD on 08/15/2023 8:58 AM PDT Station ID: [id number]
[2023-08-15 10:27] VITALS: BP 120/78
== END 2023-08-15 10:17 | disposition home or self-care (01) ==
LOC: ED 06:34
DX: O26.851 Spotting complicating pregnancy, first trimester (principal); O26.91 Pregnancy related conditions, unspecified, first trimester; I49.1 Atrial premature depolarization; E83.42 Hypomagnesemia; R00.2 Palpitations; O21.0 Mild hyperemesis gravidarum
CPT/HCPCS: 36415; 76801; 80053; 81001; 81025; 83690; 83735; 84443; 85025; 93005; 99284; A9270; Q0162; 87086

== ENCOUNTER 2023-09-01 08:00 | Outpatient (CLI) | payer MEDICAID ==
[2023-09-01 23:01] LABS: CHLAMYDIA TRACHOMATIS DNA NEGATIVE (NEGATIVE); NEISSERIA GONORRHOEAE DNA NEGATIVE (NEGATIVE); TRICHOMONAS VAGINALIS DNA NEGATIVE (NEGATIVE)
== END 2023-09-01 23:59 | disposition home or self-care (01) ==
LOC: LAB.WC 08:00
PROVIDERS: ATTEND Nurse Practitioner
DX: Z11.3 Encounter for screening for infections with a predominantly sexual mode of transmission (principal)
CPT/HCPCS: 87491; 87591; 87661

== ENCOUNTER 2023-09-08 15:17 | Observation (INO) | payer MEDICAID ==
--- NOTE | 2023-09-08 15:35 | ED Physician Documentation ---
PD HPI ABD PAIN - Stated complaint Stated Complaint: AB BLEEDING - Chief complaint Chief Complaint: Abd Pain - History obtained from History obtained from: Patient - Additional information Additional information: She is a G3 with history of 3 abortions. She took misoprostol 5 days ago and was bleeding in line with what she thought was the appropriate amount for the first few days but now is hemorrhaging filling up a pad every 15 minutes. PD PAST MEDICAL HISTORY - Past Medical History Past Medical History: Yes Cardiovascular: None Respiratory: None Neuro: None Endocrine/Autoimmune: None - Past Surgical History Past Surgical History: No - Present Medications Home Medications: Ambulatory Orders Medication Instructions Recorded Confirmed Amox/Clav 875/125 [Augmentin 1 tablet PO Q12H 7 Days #14 tablet 01/02/23 875/125 Tab] Magnesium Oxide [Mag Ox] 400 mg PO DAILY #20 tablet 08/15/23 Ondansetron Odt [Zofran] 4 mg TL Q6H PRN #20 tablet 08/15/23 Pnv No.95/Ferrous Fum/Folic AC 1 tab PO DAILY 08/15/23 08/15/23 [ Caplet] Pnv No.95/Ferrous Fum/Folic AC 1 each PO DAILY #30 tablet 08/15/23 [ Tablet] Pyridoxine HCl (Vitamin B6) 50 mg PO BID #40 tab 08/15/23 [Vitamin B6] - Allergies Allergies/Adverse Reactions: Allergies Allergy/AdvReac Type Severity Reaction Status Date / Time No Known Drug Allergies Allergy Verified 09/08/23 15:29 - Social History Does the pt smoke?: No Smoking Status: Never smoker Does the pt drink ETOH?: Yes Does the pt have substance abuse?: No - Immunizations Immunizations are current?: Yes - POLST Patient has POLST: No PD ED PE NORMAL - Vitals Vital signs reviewed: Yes - General General: Alert and oriented X 3, No acute distress - Abdomen Abdomen: Normal bowel sounds, Soft, Non tender - Female Female : Other - Derm Derm: Normal color, Warm and dry (Bedside ultrasound demonstrates thickened endometrial stripe to be confirmed on formal.) Results - Vitals Vitals: Vital Signs - 24 hr 09/08/23 15:23 Temperature 36.5 C Heart Rate 100 Respiratory 16 Rate Blood Pressure 139/80 H O2 Saturation 100 Oxygen O2 Source Room air - Labs Labs: Laboratory Tests 09/08/23 09/08/23 15:44 15:44 WBC 8.0 RBC 3.05 L Hgb 7.6 L Hct 24.3 L MCV 79.7 L MCH 24.9 L MCHC 31.3 L RDW 17.5 H Plt Count 276 MPV 9.1 Neut # (Auto) 5.8 Lymph # (Auto) 1.5 [place] # (Auto) 0.5 Eos # (Auto) 0.1 Baso # (Auto) 0.1 Absolute Nucleated RBC 0.00 Nucleated RBC % 0.0 Sodium 135 Potassium 3.5 Chloride 105 Carbon Dioxide 23 Anion Gap 7.0 BUN 5 L Creatinine 0.5 L Estimated GFR (MDRD) 152 Glucose 105 H Calcium 8.9 Total Bilirubin 0.3 AST 14 ALT 7 L Alkaline Phosphatase 41 L Total Protein 6.0 L Albumin 3.7 Globulin 2.3 Albumin/Globulin Ratio 1.6 Beta HCG, Quant 41924.9 - Rads (name of study) Pelvic ultrasound prelim from [facility] showing retained POC Relevant Findings:: Prelim report reviewed PD Medical Decision Making - ED course ED course: 22-year-old woman presents with hemorrhage after medical . She does ap pear to have some material in the uterus on my bedside ultrasound. Initial blood work was notable for hemoglobin of 7, month ago it was 11 so this represents a fair size drop. She is hemodynamically stable and comfortable but I spoke with Dr. Brown, our on-call [employer] who plans to come to the ED to evaluate and likely to the OR for a D&C. He request 1 unit crossmatch but no transfusion at this time. Departure - Departure Disposition: ED Transfer to [facility] Clinical Impression: complicated with hemorrhage, Anemia due to acute blood loss Condition: Fair
[2023-09-08 15:50] LABS: BASOPHILS # (AUTO) 0.1 10^3/uL (0.0-0.1); BASOPHILS % (AUTO) 0.7 %; EOSINOPHILS # (AUTO) 0.1 10^3/uL (0.0-0.7); EOSINOPHILS % (AUTO) 1.5 %; HCT - HEMATOCRIT 24.3 % (37.0-47.0); HGB - HEMOGLOBIN 7.6 g/dL (12.0-16.0); LYMPHOCYTES # (AUTO) 1.5 10^3/uL (1.5-3.5); MEAN CORPUSCULAR HEMOGLOBIN 24.9 pg (27.0-31.0); MEAN CORPUSCULAR HGB CONC 31.3 g/dL (32.0-36.0); MEAN CORPUSCULAR VOLUME 79.7 fL (81.0-99.0); MEAN PLATELET VOLUME 9.1 fL (7.9-10.8); MONOCYTES # (AUTO) 0.5 10^3/uL (0.0-1.0); MONOCYTES % (AUTO) 5.6 %; NEUTROPHILS # (AUTO) 5.8 10^3/uL (1.5-6.6); NEUTROPHILS % (AUTO) 72.7 %; PLT - PLATELET COUNT 276 10^3/uL (130-450); RED BLOOD COUNT 3.05 10^6/uL (4.20-5.40); RED CELL DISTRIBUTION WIDTH 17.5 % (12.0-15.0)
[2023-09-08 16:08] LABS: ALBUMIN 3.7 g/dL (3.2-5.5); ALBUMIN/GLOBULIN RATIO 1.6 (1.0-2.2); BILIRUBIN,TOTAL 0.3 mg/dL (0.2-1.0); CALCIUM 8.9 mg/dL (8.5-10.3); CREATININE 0.5 mg/dL (0.6-1.3); POTASSIUM 3.5 mmol/L (3.5-4.5)
--- NOTE | 2023-09-08 16:38 | HISTORY & PHYSICAL EXAMINATION ---
HPI - Admitted From Admitted from: ED - History of Present Illness HPI Comment/Other: HPI: Patient is a 22-year-old G3, P0 presented today for heavy bleeding after elective termination of . She took mifepristone 1 week ago on Monday then misoprostol on Monday. She started bleeding Monday night and is rather steady for the last several days, but picked up this morning. Was feeling well in general, but the last little bit she has felt a little lightheaded. Was call ed by the ED as she has a hemoglobin of 7.6, but is vitally stable. All other symptoms reviewed and were negative except per HPI. PMH Anxiety Asthma GERD Insomnia PSH No previous surgeries SH Current smoker, no alcohol use. Occasional marijuana use. Family History Denies pertinent family history Allergies No known drug allergies Medications No current medications Physical exam: General: Alert, oriented, no acute distress Head: Normal cephalic atraumatic Eyes: PERRLA, extraocular motions intact. Respiratory: Normal rate of respiration. No accessory muscle use, normal respiratory effort. Cardiovascular: Regular rate and rhythm Abdomen: Nontender, nondistended Extremities: Normal range of motion Neuro: Oriented x3. Normal movements Psych: Appropriate mood and affect. Normal judgment and insight Plan 22-year-old G3, P0 with incomplete and heavy vaginal bleeding Incomplete -Plan for suction D&C in the operating room -Discussed risk, benefits, alternatives of suction D&C, but at this point I would recommend surgery rather than redosing misoprostol given her anemia. -Discussed infection, damage to other organs, perforation, bleeding. -200 mg doxycycline preoperatively. -Anticipate discharge later tonight. I expect patient to be discharged or transferred within 96 hours. PMH/PSH - Past Medical History Cardiovascular: positive: None Respiratory: positive: None Neuro: positive: None Endocrine/Autoimmune: positive: None MRSA Hx?: No Social & Family Hx - Social History Does the pt smoke?: No Smoking Status: Never smoker Does the pt drink ETOH?: Yes Does the pt have substance abuse?: No - POLST Patient has POLST: No Meds/Allgy - Home Medications Home Medications: Ambulatory Orders Medication Instructions Recorded Confirmed Amox/Clav 875/125 [Augmentin 1 tablet PO Q12H 7 Days #14 tablet 01/02/23 875/125 Tab] Magnesium Oxide [Mag Ox] 400 mg PO DAILY #20 tablet 08/15/23 Ondansetron Odt [Zofran] 4 mg TL Q6H PRN #20 tablet 08/15/23 Pnv No.95/Ferrous Fum/Folic AC 1 tab PO DAILY 08/15/23 08/15/23 [ Caplet] Pnv No.95/Ferrous Fum/Folic AC 1 each PO DAILY #30 tablet 08/15/23 [ Tablet] Pyridoxine HCl (Vitamin B6) 50 mg PO BID #40 tab 08/15/23 [Vitamin B6] - Allergies Allergies/Adverse Reactions: Allergies Allergy/AdvReac Type Severity Reaction Status Date / Time No Known Drug Allergies Allergy Verified 09/08/23 15:29 Exam - Vital Signs Vital Signs: Vital Signs x48h Temp Pulse Resp BP Pulse Ox 09/08/23 15:23 97.7 F 100 16 139/80 H 100 Results - Lab Results Fish Bones: 09/08/23 15:44 09/08/23 15:44 Other Lab Results: Lab Results x24hrs 09/08/23 09/08/23 Range/Units 15:44 15:44 WBC 8.0 (4.8-10.8) x10^3/uL RBC 3.05 L (4.20-5.40) 10^6/uL Hgb 7.6 L (12.0-16.0) g/dL Hct 24.3 L (37.0-47.0) % MCV 79.7 L (81.0-99.0) fL MCH 24.9 L (27.0-31.0) pg MCHC 31.3 L (32.0-36.0) g/dL RDW 17.5 H (12.0-15.0) % Plt Count 276 (130-450) 10^3/uL MPV 9.1 (7.9-10.8) fL Neut # (Auto) 5.8 (1.5-6.6) 10^3/uL Lymph # (Auto) 1.5 (1.5-3.5) 10^3/uL [place] # (Auto) 0.5 (0.0-1.0) 10^3/uL Eos # (Auto) 0.1 (0.0-0.7) 10^3/uL Baso # (Auto) 0.1 (0.0-0.1) 10^3/uL Absolute Nucleated RBC 0.00 x10^3/uL Nucleated RBC % 0.0 /100WBC Sodium 135 (135-145) mmol/L Potassium 3.5 (3.5-4.5) mmol/L Chloride 105 (101-111) mmol/L Carbon Dioxide 23 (21-32) mmol/L Anion Gap 7.0 (6-13) BUN 5 L (6-20) mg/dL Creatinine 0.5 L (0.6-1.3) mg/dL Estimated GFR (MDRD) 152 (>89) Glucose 105 H (74-104) mg/dL Calcium 8.9 (8.5-10.3) mg/dL Total Bilirubin 0.3 (0.2-1.0) mg/dL AST 14 (10-42) IU/L ALT 7 L (10-60) IU/L Alkaline Phosphatase 41 L (42-121) IU/L Total Protein 6.0 L (6.4-8.9) g/dL Albumin 3.7 (3.2-5.5) g/dL Globulin 2.3 (2.1-4.2) g/dL Albumin/Globulin Ratio 1.6 (1.0-2.2) Beta HCG, Quant 25699.9 mIU/mL
[2023-09-08] MEDS: DOXYCYCLINE 100 MG TABLET PO STA (16:41)
[2023-09-08] MEDS ORDERED: BUPIVACAINE 0.25% PF 10 ML VIAL ONE (16:54)
[2023-09-08] MEDS: BUPIVACAINE 0.25% PF 30 ML VIAL SUBQ ONE (17:06)
[2023-09-08] MEDS ORDERED: PROPOFOL 200 MG/20 ML VIAL IVP ONE (17:06)
[2023-09-08] MEDS ORDERED: LIDOCAINE-PF 2% 10 ML AMP SUBQ ONE (17:07)
[2023-09-08] MEDS ORDERED: fentaNYL 100 MCG/2 ML VIAL ONE (17:07)
[2023-09-08] MEDS ORDERED: MIDAZOLAM 2 MG/2 ML VIAL ONE (17:07)
[2023-09-08] MEDS ORDERED: ePHEDrine 50 MG/ML VIAL IVP PRN (17:15)
[2023-09-08] MEDS ORDERED: HYDROmorphone 0.5 MG/0.5 ML SYRINGE IVP PRN (17:15)
[2023-09-08] MEDS ORDERED: fentaNYL 100 MCG/2 ML VIAL IVP PRN (17:15)
[2023-09-08] MEDS ORDERED: ATROPINE ABBOJECT 1 MG/10 ML SYRINGE IVP PRN (17:15)
[2023-09-08] MEDS ORDERED: ONDANSETRON 4 MG/2 ML VIAL IVP PRN ×2 (17:15→18:19)
[2023-09-08] MEDS ORDERED: NALOXONE 0.4 MG/ML VIAL IVP PRN (17:15)
[2023-09-08] MEDS ORDERED: MORPHINE 2 MG/ML CARPUJECT IVP PRN (17:15)
[2023-09-08] MEDS ORDERED: METOCLOPRAMIDE 10 MG/2 ML VIAL IVP PRN (17:15)
--- NOTE | 2023-09-08 17:15 | ANESTHESIA ---
Pre-Anesthesia VS, & Labs - Diagnosis missed elective - Procedure D&C Vital Signs: Temp Pulse Resp BP Pulse Ox O2 Flow Rate 36.5 C 100 16 139/80 H 100 09/08/23 15:23 09/08/23 15:23 09/08/23 15:23 09/08/23 15:23 09/08/23 15:23 Height: 5 ft 1 in Weight (kg): 59.3 kg Body Mass Index: 24.7 BMI Classification: Normal - NPO Other (light meal at 11am) - Is Patient ?: No - Lab Results Current Lab Results: Laboratory Tests 09/08/23 15:44: Sodium 135, Potassium 3.5, Chloride 105, Carbon Dioxide 23, Anion Gap 7.0, BUN 5 L, Creatinine 0.5 L, Estimated GFR (MDRD) 152, Glucose 105 H, Calcium 8.9, Total Bilirubin 0.3, AST 14, ALT 7 L, Alkaline Phosphatase 41 L, Total Protein 6.0 L, Albumin 3.7, Globulin 2.3, Albumin/Globulin Ratio 1.6, Beta HCG, Quant 53360.9 09/08/23 15:44: WBC 8.0, RBC 3.05 L, Hgb 7.6 L, Hct 24.3 L, MCV 79.7 L, MCH 24.9 L, MCHC 31.3 L, RDW 17.5 H, Plt Count 276, MPV 9.1, Neut # (Auto) 5.8, Lymph # (Auto) 1.5, [place] # (Auto) 0.5, Eos # (Auto) 0.1, Baso # (Auto) 0.1, Absolute Nucleated RBC 0.00, Nucleated RBC % 0.0 Fish Bones: 09/08/23 15:44 09/08/23 15:44 Home Medications and Allergies Pnv No.95/Ferrous Fum/Folic AC [ Caplet] 1 tab PO DAILY 08/15/23 Allergies/Adverse Reactions: Allergies Allergy/AdvReac Type Severity Reaction Status Date / Time No Known Drug Allergies Allergy Verified 09/08/23 15:29 Anes History & Medical History - Anesthetic History Anesthesia Complications: reports: No previous complications - Medical History Cardiovascular: reports: None Pulmonary: reports: None Neuro: reports: None Endocrine/Autoimmune: reports: None Smoking Status: Never smoker Exam General: Alert, Oriented x3 Dental: WNL Mouth Opening: Greater than 4 Fingerbreadths Neck Mobility: Normal Mallampati classification: II Thyromental Distance: greater than 6 cm Respiratory: Lungs clear Cardiovascular: Regular rate Plan Anesthesia Type: General, Total IV Consent for Procedure(s) Verified and Reviewed: Yes Code Status: Attempt Resuscitation ASA classification: 2-Mild systemic disease Is this case an emergency?: Yes
[2023-09-08] MEDS ORDERED: ROCURONIUM 50 MG/5 ML VIAL ONE (17:24)
[2023-09-08] MEDS ORDERED: DEXAMETHASONE 4 MG/ML VIAL ONE (17:25)
[2023-09-08] MEDS ORDERED: ONDANSETRON 4 MG/2 ML VIAL ONE (17:25)
--- NOTE | 2023-09-08 17:45 | Ultrasound Report ---
PROCEDURE: Pelvic Complete INDICATIONS: Bleeding after medical ,? POC TECHNIQUE: Real-time transabdominal scanning was performed of the pelvic organs, with image documentation. COMPARISON: None FINDINGS: Limited exam secondary to patient condition. Uterus: Uterus is anteverted and normal in size at 9.4 x 4.3 x 5.2 cm. The myometrium is mildly het erogeneous with increased vascular flow along the anterior myometrium and within the endometrium.. T he endometrium measures 16.5 mm in combined thickness. Ovaries: The ovaries are normal size. There is a cyst within the left ovary measuring 2.7 cm. No dom inant adnexal masses.. Other: Small amount of fluid around the cervix. IMPRESSION: Hypervascular anterior myometrium and endometrium consistent with ongoing bleeding. There may be lupe ined products of conception. There may also be a vascular injury. Reviewed by: Keya Saez MD on 09/08/2023 5:44 PM PDT Approved by: Keya Saez MD on 09/08/2023 5:44 PM PDT Station ID: [id number]
[2023-09-08] MEDS ORDERED: ACETAMINOPHEN 1,000 MG/100 ML 1,000 MG/100 ML BAG IV ONE (17:49)
[2023-09-08] MEDS ORDERED: SUGAMMADEX 200 MG/2 ML VIAL IVP ONE (17:57)
[2023-09-08] MEDS ORDERED: LACTATED RINGERS 1,000 ML IV SCH (18:00)
[2023-09-08] MEDS: LACTATED RINGERS 600 ML IV ONE ×2 (18:10→18:36)
[2023-09-08] MEDS ORDERED: HYDROcod/ACETAM 10 MG/325 MG TABLET PO PRN (18:12)
--- NOTE | 2023-09-08 18:21 | OPERATIVE REPORT ---
Operative Report - General Procedure Date: 09/08/23 Planned Procedure: Ultrasound-guided suction D&C Pre-Op Diagnosis: Incomplete Procedure Performed: Ultrasound-guided suction D&C Post Op Diagnosis: Incomplete - Procedure Note Primary Surgeon: Ronen Brown MD Anesthesia Provider: Gin Roland CRNA Anesthesia Technique: General ET tube Pathology: Products of conception IV Fluids (mL): 400 Estimated Blood Loss (mL): 100 Urine Output (mL): 100 Findings: Dilated cervical os approximately 1 cm. Clot versus retained products in cervical os Complications: None - Other Other Information/Narrative: Suction D&C Prior to the procedure, patient received 200 mg of oral doxycycline. Patient was placed in the dorsal high lithotomy position with Lewis-type stirrups. General anesthesia was obtained without difficulty. Time out was taken. The pelvis was prepped and the patient was draped in the usual fashion. A bivalve speculum was placed in the vagina and the cervix noted the cervical os approximately 1 cm dilated with clot versus products of conception at the cervical os. This was removed with a ring forcep. The cervix was grasped with a single-tooth tenaculum and gently drawn towards the vaginal outlet. A paracervical block was performed using 0.25% Marcaine. An 8 mm dilator was placed to the cervix ensuring a size would accommodate a 8 mm flexible suction cathete on the was used for suction. The dilator passed easily without any resistance and did not require dilation. Under ultrasound guidance, the catheter was placed without suction into the uterine cavity. Blood and products of conception were collected in the section catheter container. After adequate removal of products, a sharp curette was used to remove additional products of conception adherent to uterine alvarenga. The products were collected on a Telfa pad. After removing products of conception and feeling circumferential uterine cri, adequate hemostasis was noted from coming from the uterus and the tenaculum was removed. Tenaculum sites were hemostatic. Upon examination the patient was hemostatic and all instruments were removed. Patient was returned to dorsal supine position and awoke from anesthesia. She was taken to the PACU in good condition.
--- NOTE | 2023-09-08 18:58 | ANESTHESIA POST OP EVALUATION ---
Anesthesia Post Eval - Post Anesthesia Eval Vitals: Last Vital Signs Temp 36.2 C L 09/08/23 18:34 Pulse 87 09/08/23 18:34 Resp 19 09/08/23 18:34 BP 105/70 09/08/23 18:34 Pulse Ox 100 09/08/23 18:34 O2 Flow Rate CV Function Including HR & BP: Stable Pain Control: Satisfactory Nausea & Vomiting: Negative Mental Status: Baseline Respiratory Status: Airway Patent Hydration Status: Satisfactory Anesthesia Complications: None
[2023-09-09 00:04] LABS: HCT - HEMATOCRIT 27.7 % (37.0-47.0); HGB - HEMOGLOBIN 8.6 g/dL (12.0-16.0)
[2023-09-09 01:27] VITALS: BP 117/62; O2SAT 97
--- NOTE | 2023-09-11 13:06 | PROVIDER PROGRESS NOTE ---
Subjective - Prog Note Date Prog Note Date: 09/09/23 - Subjective Subjective: Patient was monitored after surgery and blood administration. Repeat hemoglobin was stable as well as vitals, desired to discharge in the middle of the night rather than go home in the AM. Patient discharged after stability assessed . Objective - Lab Results Fish Bones: 09/08/23 23:58 09/08/23 15:44
== END 2023-09-09 00:42 | disposition home or self-care (01) ==
LOC: ED 15:17 → SDS 16:30 → FBP 18:42 → SDS 18:59 → FBP 19:00
PROVIDERS: ADMIT Obstetrics & Gynecology; ATTEND Obstetrics & Gynecology
PROC: 10D17ZZ Extraction of Products of Conception, Retained, Via Natural or Artificial Opening (ICD-10-PCS; principal; 2023-09-08 17:00)
DX: O07.1 Delayed or excessive hemorrhage following failed attempted termination of pregnancy (principal); D62 Acute posthemorrhagic anemia; F17.200 Nicotine dependence, unspecified, uncomplicated
CPT/HCPCS: 36415; 59812; 76856; 80053; 84702; 85014; 85018; 85025; 86850; 86900; 86901; 86920; 99284; 99285; A9270; J0131; J7120; P9016